=== PATIENT | female | born 1985 | race Caucasian/White ===

== ENCOUNTER → 2019-09-20 | Outpatient (CLI) | payer MEDICAID ==
--- NOTE | 2019-09-20 17:00 | RAD ---
EXAM: Abdomen, 2 views. HISTORY: Pain. COMPARISON: None. FINDINGS: Frontal upright and supine views of abdomen are obtained. There is gas and stool within the colon. There are nonspecific nondistended air-filled loops of small bowel within the left abdomen. There are cholecystectomy clips. There are fallopian tube closure devices overlying the pelvis. There is no free air. IMPRESSION: Nonobstructive bowel gas pattern. Electronically signed by: Shelley Lopes MD (09/20/2019 4:57 PM) [facility]
== END ==
LOC: DXRAD 10:42
PROVIDERS: ATTEND Physician Assistant
DX: R14.3 Flatulence (principal); Z90.49 Acquired absence of other specified parts of digestive tract
CPT/HCPCS: 74019

== ENCOUNTER 2020-10-21 15:21 | Emergency (ER) | payer OTHER, MEDICAID ==
[~2020-10-21] VITALS: Ht 157.5 cm; Wt 86.5 kg
[2020-10-21 15:25] VITALS: BP 123/68
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
[2020-10-21 17:00] LABS: BILIRUBIN,URINE NEG (NEG); CLARITY,URINE CLEAR; COLOR,URINE STRAW; GLUCOSE,URINE NEG (NEG); NITRITE,URINE NEG (NEG); UROBILINOGEN,URINE 0.2 mg/dL (0.2 mg/dL)
[2020-10-21 17:02] LABS: AMORPHOUS SEDIMENT,UR PRESENT /HPF; BACTERIA,URINE 0 /HPF (0-FEW); RBC,URINE 0 /HPF (0-2); SQUAMOUS EPITHELIAL CELL,UR FEW /LPF; WBC,URINE RARE /HPF (0-4)
[2020-10-21] MEDS ORDERED: LIDO700A21 TP (17:22)
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
== END 2020-10-21 17:37 | disposition home or self-care (01) ==
LOC: ER 15:21
DX: M54.5 Low back pain (principal); F41.9 Anxiety disorder, unspecified; Z88.5 Allergy status to narcotic agent; E66.9 Obesity, unspecified; Z68.34 Body mass index [BMI] 34.0-34.9, adult; V43.52XA Car driver injured in collision with other type car in traffic accident, initial encounter; Y93.I9 Activity, other involving external motion; Y92.488 Other paved roadways as the place of occurrence of the external cause; Y99.8 Other external cause status
CPT/HCPCS: 72100; 81001; 99284